=== PATIENT | female | born 1945 | race Caucasian/White ===

== ENCOUNTER 2016-12-14 06:36 | Day surgery (SDC) | payer MEDICARE, OTHER ==
--- NOTE | ~2016-12-14 | EGD ---
EGD REPORT [facility] [address] [address] NAME: JESSENIA YU : [birth year] STATUS : REG [facility]#: [id number] AGE: 71 ADM/REG DATE : 12/14/16 MR#: [id number] REPORT SERV DATE: 12/14/16 DICTATED BY: WENDY HURT DATE: 12/14/16 REPORT STATUS : Draft TRANSCRIBED BY: [employer] DATE: 12/14/16 [facility] Patient Name: Jessenia Yu Date of : 1945 Attending MD: WENDY HURT MD Procedure Date No Time: 12/14/2016 Procedure: Colonoscopy Indications: Abdominal pain in the left lower quadrant, FH of Colon Cancer - 1st degree relative, Change in bowel habits Referring MD: Myrtle Agosto Medicines: as per anesthesia Complications: No immediate complications. Procedure: Pre-Anesthesia Assessment: - ASA Grade Assessment: II - A patient with mild systemic disease. After I obtained informed consent, the scope was passed under direct vision. Throughout the procedure, the patient's blood pressure, pulse, and oxygen saturations were monitored continuously. The [facility] [id number] was introduced through the anus and advanced to the sigmoid colon. The colonoscopy was extremely difficult due to restricted mobility of the colon, significant looping and a tortuous colon. The patient tolerated the procedure. The quality of the bowel preparation was adequate to identify polyps. Findings: The perianal and digital rectal examinations were normal. A few small-mouthed diverticula were found in the sigmoid colon. Internal hemorrhoids were found during endoscopy and were mild. fixation of sigmoid scope would not pass Impression: - Diverticulosis in the sigmoid colon. - Internal hemorrhoids. Recommendation: - Perform an air contrast barium enema. Procedure Code(s): --- Professional --- 52443, 52, Colonoscopy, flexible, proximal to splenic flexure; diagnostic, with or without collection of specimen(s) by brushing or washing, with or without colon decompression (separate procedure) Diagnosis Code(s): --- Professional --- K64.8, Other hemorrhoids EGD REPORT [facility] [address] [place] [address] [address] [address] NAME: JESSENIA YU : [birth year] STATUS : REG [facility]#: [id number] AGE: 71 ADM/REG DATE : 12/14/16 MR#: [id number] REPORT SERV DATE: 12/14/16 DICTATED BY: WENDY HURT DATE: 12/14/16 REPORT STATUS : Draft TRANSCRIBED BY: [employer] DATE: 12/14/16 K57.30, Diverticulosis of large intestine without perforation or abscess without bleeding R10.32, Left lower quadrant pain Z80.0, Family history of malignant neoplasm of digestive organs R19.4, Change in bowel habit CPT copyright 2013 [employer]. All rights reserved. The codes documented in this report are preliminary and upon armature rewinder review may be revised to meet current compliance requirements. WENDY HURT MD 12/14/2016 9:04 AM This report has been signed electronically. Number of Addenda: 0 Note Initiated On: 12/14/2016 8:14 AM Scope Withdrawal Time 0 hours 0 minutes 0 seconds [address] [facility] [address]
--- NOTE | ~2016-12-14 | EGD ---
EGD REPORT [facility] [address] [address] NAME: JESSENIA YU : [birth year] STATUS : REG [facility]#: [id number] AGE: 71 ADM/REG DATE : 12/14/16 MR#: [id number] REPORT SERV DATE: 12/14/16 DICTATED BY: WENDY HURT DATE: 12/14/16 REPORT STATUS : Draft TRANSCRIBED BY: [employer] DATE: 12/14/16 [facility] Patient Name: Jessenia Yu Date of : 1945 Attending MD: WENDY HURT MD Procedure Date No Time: 12/14/2016 Procedure: Upper GI endoscopy Indications: Heartburn, Suspected esophageal reflux, Nausea Referring MD: Myrtle Agosto Medicines: as per anesthesia Complications: No immediate complications. Procedure: Pre-Anesthesia Assessment: - ASA Grade Assessment: II - A patient with mild systemic disease. After obtaining informed consent, the endoscope was passed under direct vision. Throughout the procedure, the patient's blood pressure, pulse, and oxygen saturations were monitored continuously. The [facility] H190 [id number] was introduced through the mouth, and advanced to the third part of duodenum. The upper GI endoscopy was accomplished without difficulty. The patient tolerated the procedure. Findings: The examined esophagus was normal. A medium-sized hiatus hernia was present. Localized moderate inflammation characterized by erythema was found in the gastric antrum. Biopsies were taken with a cold forceps for histology. The examined duodenum was normal. Impression: - Normal esophagus. - Hiatus hernia. - Gastritis. Biopsied. - Normal examined duodenum. Recommendation: - Await pathology results. - Follow an antireflux regimen. - Continue present medications. Procedure Code(s): --- Professional --- 58354, Esophagogastroduodenoscopy, flexible, transoral; with biopsy, single or multiple Diagnosis Code(s): --- Professional --- EGD REPORT [place] [address] [address] [address] NAME: JESSENIA YU : [birth year] STATUS : REG [facility] PAT#: [id number] AGE: 71 ADM/REG DATE : 12/14/16 MR#: [id number] REPORT SERV DATE: 12/14/16 DICTATED BY: WENDY HURT. DATE: 12/14/16 REPORT STATUS : Draft TRANSCRIBED BY: [employer] DATE: 12/14/16 K44.9, Diaphragmatic hernia without obstruction or gangrene K29.70, Gastritis, unspecified, without bleeding R12, Heartburn R11.0, Nausea CPT copyright 2013 [employer]. All rights reserved. The codes documented in this report are preliminary and upon house mover supervisor review may be revised to meet current compliance requirements. WENDY HURT MD 12/14/2016 8:29 AM This report has been signed electronically. Number of Addenda: 0 Note Initiated On: 12/14/2016 8:12 AM Scope Withdrawal Time 0 hours 0 minutes 0 seconds [address] [place] [id number]
[~2016-12-14 06:36] MED LIST: ALLEGRA180 PO; ARTHROTEC 50 PO; ATV.5 PO; DIOVAN HC1 PO; DIOVAN HCT320 MG/25 PO; GLUCOTROL5 PO; HUMALOGPEN SC; JANUVIA100 MG PO; LEVEMFLXPN SQ; LOPID6 PO; MELATONIN5 M1 PO; METAMUCIL CAN7 OZ PO; MEVACOR PO; NEXIUM40 PO; NORCO1 TA1 PO; PRILOSEC OTC20 MG PO; PROTONIX PO; ULTRAM50 PO; VICTOZA18 MG/3 ML SC; VITC500 PO; VITE PO; WELLSR150 PO; ZETIA PO; ZOL50 PO; ZYRTEC ALLGY10 MG PO
== END 2016-12-14 23:59 | disposition home or self-care (01) ==
LOC: DMU 06:36
PROVIDERS: Internal Medicine Gastroenterology
PROC: 0DJD8ZZ Inspection of Lower Intestinal Tract, Via Natural or Artificial Opening Endoscopic (ICD-10-PCS; principal; 2016-12-14 08:30)
PROC: 0DB68ZX Excision of Stomach, Via Natural or Artificial Opening Endoscopic, Diagnostic (ICD-10-PCS; 2016-12-14 08:30)
DX: K64.8 Other hemorrhoids (principal); K57.30 Diverticulosis of large intestine without perforation or abscess without bleeding; Z80.0 Family history of malignant neoplasm of digestive organs; R19.4 Change in bowel habit; K44.9 Diaphragmatic hernia without obstruction or gangrene
CPT/HCPCS: 82962; 88305